=== PATIENT | female | born 1965 | race Caucasian/White ===

== ENCOUNTER 2019-09-13 16:22 | Emergency (ER) | payer OTHER ==
[~2019-09-13] VITALS: Ht 162.6 cm; Wt 90.7 kg
[~2019-09-13 16:22] MED LIST: ATENOLOL 100MG100 MG PO; ATENOLOL 50MG T50 M1 PO; ATENOLOL 50MG T50 MG PO; FLEXERIL PO; HYDROCHLOROTHIA25 M2 PO; LASIX 40 MG TAB40 MG PO; NORCO 5-325 TA1 EACH PO
[2019-09-13 16:23] VITALS: BP 164/77
[2019-09-13] MEDS ORDERED: NORCO 5-325 TA1 EAC1 PO (17:16)
[2019-09-13] MEDS ORDERED: CLEOCIN HCL150 MG PO (17:16)
== END 2019-09-13 18:17 | disposition home or self-care (01) ==
LOC: ER 16:22
DX: K08.89 Other specified disorders of teeth and supporting structures (principal); M54.2 Cervicalgia; I10 Essential (primary) hypertension; M54.9 Dorsalgia, unspecified; G89.29 Other chronic pain; Z90.710 Acquired absence of both cervix and uterus; Z85.41 Personal history of malignant neoplasm of cervix uteri; Z85.43 Personal history of malignant neoplasm of ovary; Z88.0 Allergy status to penicillin